=== PATIENT | female | born 1985 | race Caucasian/White ===

== ENCOUNTER 2017-11-07 17:15 | Inpatient (IN) ==
[2017-11-07] MEDS ORDERED: NALOXONE 0.4 MG/1 ML VIAL IVP PRN (18:18)
[2017-11-07] MEDS ORDERED: TERBUTALINE SULFATE 1 MG/1 ML SDV SUBCUT PRN (18:18)
[2017-11-07] MEDS ORDERED: LIDOCAINE W/ SODIUM BICARB 0.5 ML SYR SUBD PRN (18:18)
[2017-11-07] MEDS ORDERED: ePHEDrine Inj 5 MG in Normal Saline Flush 1 ML IVP PRN (18:18)
[2017-11-07] MEDS ORDERED: Naloxone Inj 0.01 MG in Normal Saline Flush 1 ML IVP PRN (18:18)
[2017-11-07] MEDS ORDERED: LIDOCAINE HCL 2 % 10 ML JELLY URO-JECT TOPICAL PRN (18:18)
[2017-11-07] MEDS ORDERED: BUTORPHANOL TARTRATE 2 MG/1 ML VIAL IVP PRN (18:18)
[2017-11-07] MEDS ORDERED: CITRIC ACID/SODIUM CITRATE 30 ML CUP PO PRN (18:18)
[2017-11-07] MEDS ORDERED: Phenylephrine Inj 50 MCG in Normal Saline Flush 0.5 ML IVP PRN (18:18)
[2017-11-07] MEDS ORDERED: Carboprost Inj 250 MCG/ML AMP IM PRN (18:18)
[2017-11-07] MEDS ORDERED: OXYTOCIN 10 UNIT/1 ML IM PRN (18:18)
[2017-11-07] MEDS ORDERED: Metoclopramide Inj 10 MG/2 ML VIAL IV PRN (18:18)
[2017-11-07] MEDS ORDERED: ONDANSETRON 4 MG/2 ML VIAL IVP PRN (18:18)
[2017-11-07] MEDS ORDERED: MISOPROSTOL 200 MCG TABLET RECTAL PRN (18:18)
[2017-11-07] MEDS ORDERED: METHYLERGONOVINE MALEATE 0.2 MG/1 ML VIAL IM PRN (18:18)
[2017-11-07] MEDS ORDERED: Famotidine Inj 20 MG in Normal Saline Flush 10 ML IVP PRN ×4 (18:18)
[2017-11-07] MEDS ORDERED: Lidocaine 1% 10 MG/ML - 20 ML VIAL SUBCUT PRN (18:18)
[2017-11-07] MEDS ORDERED: diphenhydrAMINE 50 MG/1 ML VIAL IVP PRN (18:18)
[2017-11-07] MEDS ORDERED: NORMAL SALINE 10 ML SYRINGE FLUSH IVP PRN (18:18)
[2017-11-07] MEDS ORDERED: CefOXitin Inj 2 GM in Sodium Chloride 0.9% 100 ML IV PRN (18:18)
[2017-11-07] MEDS ORDERED: CALCIUM CARBONATE 500 MG (TUMS) CHEWABLE TABLET PO PRN (18:18)
[2017-11-07] MEDS ORDERED: Nalbuphine Inj 20 MG/ML Ampule IVP PRN (18:18)
[2017-11-07] MEDS ORDERED: Zolpidem Tab 5 MG TAB PO PRN (18:26)
[2017-11-07] MEDS ORDERED: Oxytocin 20 Units + LR 20 UNIT/1,000 ML BAG IV SCH (18:30)
[2017-11-07] MEDS: Lactated Ringers-OB Dept 1,000 ML PRIMARY IV SCH ×2 (21:50→23:24)
[2017-11-07 23:09] LABS: Hematocrit [HCT] 38.5 % (37.0-47.0); Hemoglobin [HGB] 12.7 g/dL (12.0-16.0); MEAN CORPUSCULAR HEMOGLOBIN 28.9 PG (27-31); MEAN CORPUSCULAR VOLUME 87.7 FL (81-99); MEAN PLATELET VOLUME 13.5 FL (7.4-12.2); RED BLOOD COUNT 4.39 10^6/uL (4.20-5.40)
[2017-11-07] MEDS: fentaNYL Inj 100 MCG/2 ML VIAL IV PRN (23:19)
[2017-11-08] MEDS: fentaNYL Inj 100 MCG/2 ML VIAL IV PRN
[2017-11-08] MEDS ORDERED: Misoprostol Tab 100 MCG TAB VAGINAL SCH (00:01)
[2017-11-08] MEDS: Lactated Ringers-OB Dept 1,000 ML PRIMARY IV SCH (00:10)
[2017-11-08] MEDS ORDERED: Fent/Bupiv 2mcg/0.0625% Epid 250 ML ONE (00:26)
--- NOTE | 2017-11-08 00:39 | CRNA.PROCE ---
Central Neuraxis Block Placemt - - Safety Measures: Time Out Taken, Site Verified - - Type of Block: Epidural Reason for Block: Analgesia Moniters Used During Block: SPO2, NIBP Positioning: Sitting Skin Prep Used: Betadine Skin Infiltration - Enter Amount Used in Comment Field: 1% Xylocaine (mL): Yes ( wheal L3-4) Introducer User: 18 Gauge Sophia Local Anesthetic - Enter Amount Used in Comment Field: 1.5 % Xylocaine with Epinephrine 1:200,000 (mL): Yes (5ml negative test dose) Number of Centimeters Catheter Threaded: 4 Bioclusive Dressing Applied: Yes - - Additional Details: Wishes epidural for MERLENE. Reviewed risks and benefits and she wishes to proceed. Sitting, Monitors, landmarks id'd, betadine prep, drape, skin wheal at L3-4 and #18 Hustead passed and crisp NATALY to saline first pass. Cath 4 cm without difficulty. Test dose neg. Cath secured and PCEA pump started. Anesthesia Time - Other Weight: 76.26 kg Height: 5 ft 3 in Body Mass Index (BMI): 29.7
--- NOTE | 2017-11-08 00:42 | CRNA.PROGR ---
Anesthesia Time - - Start date: 11/08/17 - Procedure/Recovery Time Anesthesia : Time In: 00:10 Anesthesia : Time Out: 01:36 - Other Weight: 76.26 kg Height: 5 ft 3 in Body Mass Index (BMI): 29.7 Physical Status: P2 Obstetrics: Planned vaginal delivery w/ neuraxial labor anesthesia/analog
[2017-11-08] MEDS ORDERED: fentaNYL 2 MCG/BUPIVACAINE 0.0625%/NS 0.9% 250 ML BAG EPIDURAL SCH (00:45)
--- NOTE | 2017-11-08 01:52 | OB.DEL.SUM ---
Delivery Note Delivery Summary: This 32 yo G2 now P2 female was admitted last evening for planned induction today. She began spontaneously alberta at 2300 and progressed into active labor. She proceeded through active labor quite rapidly to c/c/+1 and began pushing with epidural analgesia. She pushed for a short time to of a viable male infant, Apgars 6/8, weight 7 lbs., from OA position over an intact perineum. Nuchal cord x1 was reduced on the perineum. The placenta delivered promptly, spontaneously, intact, with a 3 vessel cord. EBL 250 ml. There were no complications. Mother and baby tolerated delivery well.
[2017-11-08] MEDS ORDERED: LANOLIN HPA 40 GM TUBE TOPICAL PRN (03:40)
[2017-11-08] MEDS ORDERED: BENZOCAINE/MENTHOL SPRAY 56 GM BOTTLE TOPICAL PRN (03:40)
[2017-11-08] MEDS ORDERED: Oxytocin 20 Units + LR 20 UNIT/1,000 ML BAG IV SCH (03:40)
[2017-11-08] MEDS ORDERED: DIPH,PERTUSS,TET(ADACEL) VAC/PF 0.5 ML (Tdap) IM ONE (03:40)
[2017-11-08] MEDS ORDERED: LIDOCAINE HCL 2 % 10 ML JELLY URO-JECT TOPICAL PRN (03:40)
[2017-11-08] MEDS ORDERED: diphenhydrAMINE 50 MG/1 ML VIAL IVP PRN (03:40)
[2017-11-08] MEDS ORDERED: diphenhydrAMINE 25 MG CAPSULE PO PRN (03:40)
[2017-11-08] MEDS ORDERED: ONDANSETRON 4 MG/2 ML VIAL IVP PRN (03:40)
[2017-11-08] MEDS ORDERED: NORMAL SALINE 10 ML SYRINGE FLUSH IVP PRN (03:40)
[2017-11-08] MEDS ORDERED: CALCIUM CARBONATE 500 MG (TUMS) CHEWABLE TABLET PO PRN (03:40)
[2017-11-08] MEDS ORDERED: ACETAMINOPHEN 325 MG TABLET PO PRN (03:40)
[2017-11-08] MEDS ORDERED: GLYCERIN/WITCH HAZEL 1 BOX TOPICAL PRN (03:40)
[2017-11-08] MEDS ORDERED: Nalbuphine Inj 20 MG/ML Ampule IVP PRN (03:40)
[2017-11-08] MEDS: IBUPROFEN 800 MG TABLET PO PRN ×3 (04:00→21:01)
[2017-11-08] MEDS: DOCUSATE 100 MG CAPSULE PO SCH ×2 (09:53→23:11)
[2017-11-08] MEDS: Prenatal Multivitamin Tab 1 TAB TAB PO SCH (09:53)
[2017-11-08] MEDS: HYDROcodone-APAP 5 MG -325 MG TABLET PO PRN ×2 (16:55→21:00)
[2017-11-08] MEDS: Ondansetron ODT Tab 4 MG TAB PO PRN ×2 (16:55→23:04)
[2017-11-09] MEDS: HYDROcodone-APAP 5 MG -325 MG TABLET PO PRN ×2 (01:18→05:00)
[2017-11-09] MEDS: Ondansetron ODT Tab 4 MG TAB PO PRN (05:00)
[2017-11-09] MEDS: IBUPROFEN 800 MG TABLET PO PRN (05:01)
[2017-11-09 05:07] LABS: Hemoglobin [HGB] 12.5 g/dL (12.0-16.0); MEAN CORPUSCULAR HEMOGLOBIN 28.5 PG (27-31); MEAN CORPUSCULAR HGB CONC 32.1 g/dL (33-37); MEAN PLATELET VOLUME 13.3 FL (7.4-12.2); RED BLOOD COUNT 4.38 10^6/uL (4.20-5.40)
[2017-11-09 07:48] VITALS: BP 114/70; RESP 18; TEMP 98; O2SAT 98
--- NOTE | 2017-11-09 07:57 | OB.PROGRES ---
Subjective Post Op Day: 1 Pain Management: PO Servin Catheter: No Flatus: Yes Diet: Regular Feeding Method: Exculsively Ambulating: Yes Concerns / Additional Information: Doing well this morning. Ready for discharge after circ. Assesstment / Plan Assessment / Plan: PPD 1, doing well. Discharge to home.
--- NOTE | 2017-11-09 07:58 | DCSUMMARY ---
Hospitalization Summary Admit Date: 11/07/17 Discharge Date: 11/09/17 Primary Diagnosis:: Term , Delivered Delivery Type: Vaginal Hospital Course: Normal, uncomplicated labor, delivery, and course. Discharged to home in good condition on PPD 2. F/u 6 weeks. / Postop Complications: None Complications: None Exam - Vitals Vital Signs: Vital Signs Temperature 98.0 F Temperature Source Oral Pulse Rate [Pulse Oximeter] 92 Pulse Rate 70 Respiratory Rate [Lower Back] 18 Respiratory Rate 18 Blood Pressure [Left Arm] 114/70 Blood Pressure [Right Arm] 112/64 Blood Pressure 122/76 Pulse Ox 98 Oxygen Delivery Method Room Air Height 5 ft 3 in Weight 168 lb 2 oz
[2017-11-09] MEDS ORDERED: Prenatal Multivitamin Tab 1 TAB TAB PO SCH (09:00)
[2017-11-09] MEDS: Prenatal Multivitamin Tab 1 TAB TAB PO SCH (10:42)
[2017-11-09] MEDS: DOCUSATE 100 MG CAPSULE PO SCH (10:43)
== END 2017-11-09 11:30 | disposition home or self-care (01) | DRG 775 ==
LOC: OBIP 18:18
PROVIDERS: ADMIT Obstetrics & Gynecology; ATTEND Obstetrics & Gynecology